=== PATIENT | male | born 1975 | race Caucasian/White ===

== ENCOUNTER 2016-03-04 18:34 | Emergency (ER) | payer SELFPAY ==
[2016-03-04 18:41] VITALS: BP 142/80; PULSE 74; RESP 16; TEMP 96.8; O2SAT 95
== END 2016-03-04 19:51 | disposition left against medical advice (07) ==
DX: Z53.21 Procedure and treatment not carried out due to patient leaving prior to being seen by health care provider (principal)

== ENCOUNTER → 2017-04-24 | Outpatient (CLI) | payer OTHER | LOC: FIMAGING 06:47 | PROVIDERS: ATTEND Nurse Practitioner Family | DX: M51.37 Other intervertebral disc degeneration, lumbosacral region (principal); K83.9 Disease of biliary tract, unspecified; N28.1 Cyst of kidney, acquired; H81.10 Benign paroxysmal vertigo, unspecified ear ==